=== PATIENT | male | born 1990 | race Caucasian/White ===

== ENCOUNTER 2017-03-07 23:05 | Emergency (ER) | payer BC ==
--- NOTE | 2017-03-07 23:34 | ERNOTE ---
Abdominal HPI - General Chief Complaint: Abdominal Pain Source: patient Exam Limitations: no limitations - Immun/Allergies/Home Medications Immunizatons: IMMUNIZATION HX Immunizations Up to Date Yes History of Influenza Vaccine No Allergies/Adverse Reactions: Allergies tramadol Allergy (Verified 03/08/17 00:16) Home Medications: HOME MEDICATIONS NK [No Home Medication] 03/08/17 [Last Taken Unknown] - History of Present Illness Narrative: abd pain , nausea vomiting and watery diarrhea for five days. he feels weak. Review of Systems - Review of Systems Constitutional: Present: no symptoms reported EYE: Present: no symptoms reported ENT: Present: no symptoms reported Respiratory: Present: no symptoms reported Cardiology: Present: no symptoms reported Gastrointestinal/Abdominal: Present: See HPI - Patient's Past Medical History Patient History - Medical: No pertinent hx Patient History - Cardiac/Respiratory: No pertinent hx Patient History - Cancer: No Hx of Cancer Patient History - Surgical Procedures: No surgical history Patient History - Other: None - Social History Living Situations: alone Psych History: No pertinent hx Smoking Status: Current every day smoker Patient requests Smoking Cessation Consult: No Initiate information on Smoking Cessation: No Alcohol Use: other Drug Use: none - Immunizations Immunizations Up to Date: Yes History of Influenza Vaccine: No Physical Exam - Physical Exam General Appearance: Present: wd/wn, alert, no apparent distress Neck: Present: normal inspection Respiratory: Present: no respiratory distress, normal breath sounds, no accessory muscle use, chest nontender, lungs clear Cardiovascular/Chest: Present: regular rate, rhythm, no murmur, normal peripheral pulses Gastrointestinal/Abdominal: Present: soft, other - pt has increased rushes of bowel sounds on auscultation. no rebound just diffuse tenderness ED Progress - Results and Orders Patient's Lab Results:: I have reviewed the patient's lab results. - Vital Signs Patient's Vital Signs:: I have reviewed the patient's vital signs. Vital Signs: Vital Signs 03/07/17 23:22 Temperature 36.6 C Pulse Rate 96 Respiratory 18 Rate Blood Pressure 130/66 O2 Sat by Pulse 97 Oximetry - Progress/Reassessment Chief Complaint: Abdominal Pain Plan - Plan Plan: pt's symptoms resemble viral GE, abd is benign with NO rebound tenderness. will hydrate Departure - Departure Clinical Impression: Viral gastroenteritis Disposition: Home self-care Condition: Good Instructions: Viral Gastroenteritis, Adult, [id number]
[2017-03-07] MEDS ORDERED: NORMAL SALINE 1,000 ML IV ONE (23:45)
[2017-03-07] MEDS ORDERED: ONDANSETRON HCL/PF 2 MG/ML VIAL IV ONE (23:45)
[2017-03-08] MEDS ORDERED: ONDANSETRON HCL/PF 2 MG/ML VIAL ONE (00:06)
--- OUTSIDE RECORDS SUMMARY | 2017-03-08 00:30 | XMS REPORT | Continuity of Care Document ---
:1990 Author Organization [facility] [place] [address] Care Team Providers Name Role Phone Provider, None Per Patient Primary Care Provider Unavailable Source Comments This disclosure is being made pursuant to the [employer] program and maynot contain all information available regarding this patient.[facility] Active Allergies and Adverse Reactions No Known Allergies Current Medications Be aware that medications may not be up to date as of this document. Alwaysverify current medications with the patient. Prescription Sig. Disp. Refills Start Date End Date Status naproxen (NAPROSYN) 500 0 05/24/2015 Active MG tablet traMADol (ULTRAM) 50 MG 0 08/09/2015 Active tablet amphetamine-dextroamphet Take 20 mg by mouth Active amine (ADDERALL, 20MG,) daily. 20 MG tablet Clindamycin Phos-Benzoyl Apply once daily to 50 g 11 08/21/2015 Active Perox (ACANYA) gel all affected areas every morning. Active Problems No known active problems Social History Tobacco Use Types Packs/Day Years Used Date Former Smoker Smokeless Tobacco: Never Used Plan of Care Health Maintenance Due Date Last Done Comments Tetanus/Pertussis (1 - Tdap) 2009 Influenza Immunization (#1) 2016 Results from Last 3 Months Not on file
--- OUTSIDE RECORDS SUMMARY | 2017-03-08 00:30 | XMS REPORT | Continuity of Care Document ---
:1990 Author Organization [facility] ([facility]) Address [address] [place] [address] Phone [phone] Care Team Providers Name Role Phone Morris Caal Primary Care Provider [phone] Source Comments This disclosure is being made pursuant to the Care Everywhere program, applicable federal and state laws, and may not contain all informaitonavailable regarding this patient.[facility] ([facility]) Active Allergies and Adverse Reactions No Known Allergies Current Medications Prescription Sig. Disp. Refills Start Date End Date Status ISOtretinoin (AMNESTEEM) Take 40 mg by Active 40 mg capsule mouth 2 times daily. Active Problems Problem Noted Date Other specified family circumstances 01/18/2001 Attention deficit disorder with hyperactivity(314.01) 01/18/2001 Social History Tobacco Use Types Packs/Day Years Used Date Current Every Day Smoker Cigarettes 0.5 5 Smokeless Tobacco: Never Used Tobacco Cessation:Ready to Quit: Yes; Counseling Given: Yes Comments: Last Filed Vital Signs Vital Sign Reading Time Taken Blood Pressure 123/65 03/03/2013 12:59 PM CDT Pulse 72 03/03/2013 12:59 PM CDT Temperature - - Respiratory Rate - - Height 1.829 m (6') 03/03/2013 12:59 PM CDT Weight 87.091 kg (192 lb) 03/03/2013 12:59 PM CDT Body Mass Index 26.03 03/03/2013 12:59 PM CDT Oxygen Saturation - - Plan of Care Health Maintenance Due Date Last Done Comments Hepatitis B Vaccine (1 of 3 - Primary Series) 1990 HPV Vaccine (1 of 3 - Male 3 Dose Series) 2001 Tdap Vaccine 2001 Lipid Disorder Screening 2008 MMR Vaccine 2008 Td Vaccine 2008 Varicella Vaccine (1 of 2 - Adult - No Evidence of 2008 Immunity) Pneumococcal Vaccine (1 of 1 - PPSV23) 2009 Influenza Vaccine: Seasonal (#1) 05/26/2016 Results from Last 3 Months Not on file
[2017-03-08] MEDS ORDERED: PROMETHAZINE HCL 25 MG/ML AMPUL IM ONE (01:03)
[2017-03-08] MEDS ORDERED: PROMETHAZINE HCL 25 MG/ML AMPUL ONE (01:04)
[2017-03-08 01:28] LABS: Hemoglobin 14.9 gm/dL (13.5-18.0); Mean Cell Volume 96.5 fl (78-100); Mean Corpuscular Hemoglobin 32.7 pg (27-31); Mean Corpuscular Hgb Conc 33.9 g/dl (32-36); Mean Platelet Volume 9.5 fl (6.0-9.5); Platelet Count 212 K/mm3 (150-450); Red Blood Count 4.56 M/mm3 (4.7-6.0); Red Cell Distribution Width 11.9 % (11.5-14.0)
[2017-03-08 01:33] LABS: Total Cells Counted 100
[2017-03-08 01:57] LABS: Atypical (Reactive) Lymph 2 % (0-2); Band 6 % (0-2.0); Eosinophil 5 % (0-3); Lymphocyte 14 % (20-51); Monocyte 7 % (0-9); Neutrophil 66 % (42-75); Neutrophil # 7.3 K/mm3 (1.3-6.0)
[2017-03-08 01:58] LABS: Platelet Estimate Normal (NORMAL); RBC Morphology Normal (NORMAL)
[2017-03-08 02:23] VITALS: BP 119/76
== END 2017-03-08 02:17 | disposition home or self-care (01) ==
LOC: ER 23:05
DX: A08.4 Viral intestinal infection, unspecified (principal); F17.200 Nicotine dependence, unspecified, uncomplicated

== ENCOUNTER 2017-03-13 06:10 | Emergency (ER) | payer BC ==
--- OUTSIDE RECORDS SUMMARY | 2017-03-13 06:50 | XMS REPORT | Continuity of Care Document ---
:[address] [facility] [place] [address] Care Team Providers Name Role Phone Provider, None Per Patient Primary Care Provider Unavailable Source Comments This disclosure is being made pursuant to the [employer] program and maynot contain all information available regarding this patient.[facility] Active Allergies and Adverse Reactions No Known [...]
--- OUTSIDE RECORDS SUMMARY | 2017-03-13 06:50 | XMS REPORT | Continuity of Care Document ---
:1990 Author Organization [facility] ([facility]) Address [address] [place] [address] Phone [phone] Care Team Providers Name Role Phone Morris Caal Primary Care Provider [phone] Source Comments This disclosure is being made pursuant to the Care Everywhere program, applicable federal and state laws, and may not contain all informaitonavailable regarding this patient.[facility] ([facility]) Active Allergies and Adverse Reactions No [...]
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
[2017-03-13 08:04] VITALS: BP 125/69
== END 2017-03-13 08:11 | disposition home or self-care (01) ==
LOC: ER 06:10
PROC: 2W3SX1Z Immobilization of Right Foot using Splint (ICD-10-PCS; principal; 2017-03-13)
DX: S99.199A Other physeal fracture of unspecified metatarsal, initial encounter for closed fracture (principal); Y04.0XXA Assault by unarmed brawl or fight, initial encounter; Y93.9 Activity, unspecified; Y92.009 Unspecified place in unspecified non-institutional (private) residence as the place of occurrence of the external cause

== ENCOUNTER 2017-03-16 13:41 | Day surgery (SDC) | payer BC ==
--- OUTSIDE RECORDS SUMMARY | 2017-03-16 13:45 | XMS REPORT | Continuity of Care Document ---
:1990 Author Organization [facility] ([facility]) Address [address] [place] [address] Phone [phone] Care Team Providers Name Role Phone Morris Caal Primary Care Provider [phone] Source Comments This disclosure is being made pursuant to the Care Everywhere program, applicable federal and state laws, and may not contain all informaitonavailable regarding this patient.[facility] ([facility]) Active Allergies and Adverse Reactions No [...]
--- OUTSIDE RECORDS SUMMARY | 2017-03-16 13:45 | XMS REPORT | Continuity of Care Document ---
:1990 Author Organization [facility] [place] [address] Care Team Providers Name Role Phone Provider, None Per Patient Primary Care Provider Unavailable Source Comments This disclosure is being made pursuant to the [employer] program and maynot contain all information available regarding this patient.[facility] Active Allergies and Adverse Reactions No Known [...]
== END 2017-03-16 13:42 | disposition home or self-care (01) ==
LOC: AMB 13:41 → EDSTATUS 14:00
PROVIDERS: ATTEND Orthopaedic Surgery
DX: S92.351A Displaced fracture of fifth metatarsal bone, right foot, initial encounter for closed fracture (principal)